=== PATIENT | female | born 1970 | race Caucasian/White ===

== ENCOUNTER 2018-12-26 14:20 | Emergency (ER) | payer OTHER ==
--- NOTE | 2018-12-26 14:34 | EDM.PDOC ---
ED HPI GENERAL MEDICAL PROBLEM - General Chief Complaint: Lower Extremity Injury/Pain Stated Complaint: INJURED FOOT Time Seen by Provider: 12/26/18 14:22 Source of Information: Reports: Patient History Limitations: Reports: No Limitations - History of Present Illness INITIAL COMMENTS - FREE TEXT/NARRATIVE: HISTORY AND PHYSICAL: History of present illness: Patient is a 48-year-old female who presents to the emergency room with complaints of pain and bruising to the anterior aspect of the left foot after a heavy roll of tin foil had fallen landing on her foot. She states this has caused pain with ambulation/weight bearing and now has bruising that is concerning to her. She states her mother had a "platelet disorder" that she previously had not been aware of but had ultimately played a role in her . She is not sure of the details surrounding this. She denies hitting her head or any loss of consciousness. Denies any other body part involvement. Denies any fever, chills, chest pain, shortness of breath or cough. Denies any GI or symptoms. She has been eating and drinking appropriately. Review of systems: As per history of present illness and below otherwise all systems reviewed and negative. Past medical history: As per history of present illness and as reviewed below otherwise noncontributory. Surgical history: As per history of present illness and as reviewed below otherwise noncontributory. Social history: See social history for further information Family history: As per history of present illness and as reviewed below otherwise noncontributory. Physical exam: General: Well-developed and well-nourished 48-year-old female. Alert and oriented. Nontoxic appearing and in no acute distress. HEENT: Atraumatic, normocephalic, pupils equal and reactive bilaterally, negative for conjunctival pallor or scleral icterus, mucous membranes moist, TMs normal bilaterally, throat clear, neck supple, nontender, trachea midline. No drooling or trismus noted. No meningeal signs. No hot potato voice noted. Lungs: Clear to auscultation, breath sounds equal bilaterally, chest nontender. Heart: S1S2, regular rate and rhythm without overt murmur Abdomen: Soft, nondistended, nontender. Negative for masses or hepatosplenomegaly. Negative for costovertebral tenderness. Pelvis: Stable nontender. Genitourinary: Deferred. Rectal: Deferred. Skin: Healing bruising noted to the left lateral anterior foot along the base of third, fourth and fifth digit. Otherwise skin is intact, warm, dry. No lesions or rashes noted. Extremities: Pain with palpation over the bruised area. She has pain with weightbearing and flexion and extension of the foot. Strong pedal and pretibial pulse. Cap refill less than 3 seconds. She is negative for cords or calf pain. Neurovascular unremarkable. Neuro: Awake, alert, oriented. Cranial nerves II through XII unremarkable. Cerebellum unremarkable. Motor and sensory unremarkable throughout. Exam nonfocal. Notes: I will do lab work as the patient does appear very concerned of having a platelet disorder that her mother has. She is agreeable to a CBC and an INR. We did discuss the need for appropriate follow-up with her primary care provider if she wants this further investigated. She is also agreeable to an x-ray at this time. Lab work is unremarkable. X-ray shows no acute fractures or dislocations. We will place and postop shoe and crutches for comfort. Supportive care measures were reviewed and discussed. Voices understanding and is agreeable to plan of care. Denies any further questions or concerns at this time. Diagnostics: CBC, INR, x-ray Therapeutics: Crutches, postop shoe Prescription: None Impression: Crush injury, left foot Plan: 1. Lab work that was done today was unremarkable. But for further diagnostic testing of this platelet disorder that your mother had, you should follow-up with your primary care provider there are multiple other tests that may need to be performed. 2. Rest, ice, elevate the affected extremity as able. Crutches and postop shoe as needed for comfort purposes. 3. Tylenol and/or ibuprofen as needed for pain management. 4. Follow-up with your primary caregiver as we discussed. Return to the ED as needed and as discussed. Definitive disposition and diagnosis as appropriate pending reevaluation and review of above. Right Feet Pain Score (Numeric/FACES): 5 - Related Data Allergies Allergy/AdvReac Type Severity Reaction Status Date / Time No Known Allergies Allergy Verified 12/26/18 14:34 Home Meds: Home Meds FLUoxetine [PROzac] 20 mg PO TID 12/26/18 [History] Temazepam [Restoril] 30 mg PO BEDTIME 12/26/18 [History] buPROPion [Wellbutrin] 75 mg PO BEDTIME 12/26/18 [History] lamoTRIgine [Lamictal XR] 300 mg PO DAILY 12/26/18 [History] Review of Systems - Review of Systems Review Of Systems: ROS reveals no pertinent complaints other than HPI. ED EXAM, GENERAL - Physical Exam Exam: See Below (See dictation) Course - Vital Signs Last Recorded V/S: Last Vital Signs Temp 96.9 F 12/26/18 14:36 Pulse 89 12/26/18 14:36 Resp 16 12/26/18 14:36 BP 128/82 12/26/18 14:36 Pulse Ox 97 12/26/18 14:36 - Orders/Labs/Meds Orders: Active Orders 24 hr Category Date Time Status DME for Discharge [COMM] Stat Oth 12/26/18 15:40 Ordered Labs: Laboratory Tests 12/26/18 12/26/18 Range/Units 14:50 14:50 WBC 5.17 (4.0-11.0) K/uL RBC 4.59 (4.30-5.90) M/uL Hgb 13.4 (12.0-16.0) g/dL Hct 38.3 (36.0-46.0) % MCV 83.4 (80.0-98.0) fL MCH 29.2 (27.0-32.0) pg MCHC 35.0 (31.0-37.0) g/dL RDW Std Deviation 37.9 (28.0-62.0) fl RDW Coeff of Betsey 13 (11.0-15.0) % Plt Count 166 (150-400) K/uL MPV 9.60 (7.40-12.00) fL Neut % (Auto) 53.7 (48.0-80.0) % Lymph % (Auto) 38.5 (16.0-40.0) % Gilmer % (Auto) 7.2 (0.0-15.0) % Eos % (Auto) 0.2 (0.0-7.0) % Baso % (Auto) 0.4 (0.0-1.5) % Neut # (Auto) 2.8 (1.4-5.7) K/uL Lymph # (Auto) 2.0 (0.6-2.4) K/uL Gilmer # (Auto) 0.4 (0.0-0.8) K/uL Eos # (Auto) 0.0 (0.0-0.7) K/uL Baso # (Auto) 0.0 (0.0-0.1) K/uL Nucleated RBC % 0.0 /100WBC Nucleated RBCs # 0 K/uL INR 0.99 Departure - Departure Time of Disposition: 15:59 Disposition: Home, Self-Care 01 Clinical Impression: Crush injury - Discharge Information Instructions: Foot Sprain Referrals: PCP,Unknown [Primary Care Provider] - Forms: ED Department Discharge Additional Instructions: The following information is given to patients seen in the emergency department who are being discharged to home. This information is to outline your options for follow-up care. We provide all patients seen in our emergency department with a follow-up referral. The need for follow-up, as well as the timing and circumstances, are variable depending upon the specifics of your emergency department visit. If you don't have a primary care physician on staff, we will provide you with a referral. We always advise you to contact your personal physician following an emergency department visit to inform them of the circumstance of the visit and for follow-up with them and/or the need for any referrals to a consulting specialist. The emergency department will also refer you to a specialist when appropriate. This referral assures that you have the opportunity for follow-up care with a specialist. All of these measure are taken in an effort to provide you with optimal care, which includes your follow-up. Under all circumstances we always encourage you to contact your private physician who remains a resource for coordinating your care. When calling for follow-up care, please make the office aware that this follow-up is from your recent emergency room visit. If for any reason you are refused follow-up, please contact the [facility] Emergency Department at and asked to speak to the emergency department charge nurse. [facility] [address] [place] [id number] [address] [id number] 1. Lab work that was done today was unremarkable. But for further diagnostic testing of this platelet disorder that your mother had, you should follow-up with your primary care provider there are multiple other tests that may need to be performed. 2. Rest, ice, elevate the affected extremity as able. Crutches and postop shoe as needed for comfort purposes. 3. Tylenol and/or ibuprofen as needed for pain management. 4. Follow-up with your primary caregiver as we discussed. Return to the ED as needed and as discussed. - My Orders Last 24 Hours: My Active Orders 12/26/18 15:40 DME for Discharge [COMM] Stat - Assessment/Plan Last 24 Hours: My Active Orders 12/26/18 15:40 DME for Discharge [COMM] Stat
--- NOTE | 2018-12-26 15:57 | CR ---
EXAMINATION: Left foot HISTORY: Pain COMPARISON: None TECHNIQUE: 2 views FINDINGS/IMPRESSION: There is no acute osseous abnormality, dislocation, or fracture. Bone mineralization and joint spaces are preserved. Tiny plantar calcaneal spur. No focal soft tissue swelling.
== END 2018-12-26 16:10 | disposition home or self-care (01) ==
LOC: MW.ED 14:20
DX: S97.82XA Crushing injury of left foot, initial encounter (principal); S90.32XA Contusion of left foot, initial encounter; Z79.899 Other long term (current) drug therapy; W20.8XXA Other cause of strike by thrown, projected or falling object, initial encounter
CPT/HCPCS: 36415; 73620-26-LT; 73620-LT; 85025; 85610; 99283; 99283-25

== ENCOUNTER 2019-02-24 11:22 | Day surgery (SDC) | payer OTHER ==
[~2019-02-24 11:22] MED LIST: Betamethasone Acetate/Betamethasone Sod Phosphate 30 MG/5 ML MDV ONE; Iopamidol 200-M 10 ML vial ITHECAL ONE; Lidocaine 2% 5 ML SDV ONE; Ropivacaine 0.5% 5 MG/ML 30 ML SDV ONE
--- NOTE | 2019-02-24 20:43 | OR ---
SURGEON: Janene Friedman D.O. DATE OF PROCEDURE: 02/24/2019 PRIMARY SURGEON: Janene Friedman D.O. OPERATING ROOM STAFF PRESENT: 1. James Edward RN. 2. Sara Aragon RN. 3. RT Helen. WOUND CLASS: I. PREOPERATIVE DIAGNOSES: 1. Lumbar L4-5 and L5-S1 degenerative disk disease. 2. Lumbar spondylosis. 3. Left lower extremity radiculopathy. PROCEDURES PERFORMED: 1. Left transforaminal epidural steroid injection at S1. 2. Fluoroscopic guidance for needle placement. 3. Local with oral Valium for sedation. PREOPERATIVE PAIN: 07/23. POSTOPERATIVE PAIN: 10/23. SCREENING QUESTIONS: The patient answered "no" to all of the following questions: 1. Are you allergic to iodine, Betadine or latex? 2. Do you have a bleeding disorder? 3. Do you have any joint replacements, heart valve replacements, or a pacemaker? 4. Are you allergic to anti-inflammatories or blood thinners? 5. Do you have any current local or systemic infections? MEDICAL NECESSITY: This is a patient with a history of chronic low back pain and lower extremity radicular pain in the above dermatomal pattern that comes in for the above diagnostic and therapeutic procedure. Pertinent positives and negatives for this suspected disease process along with the diagnostic findings and testing are in the patient's history and physical exam. The most salient feature includes radicular pain in the above dermatomal pattern. The patient had failed attempts at conservative therapy including physical therapy, nonsteroidal anti- inflammatory drugs, and other medications. No contraindications to perform this procedure including medical, no bleeding disorders or infections, no psychological, no antisocial personality disorder or active addiction disorder. There are no work-related issues, and, in general, the patient does not have any history of multiple prior interventions, surgeries or nerve blocks which have failed to return the patient to function. The patient's other symptoms to be treated include numbness, paresthesia, dysesthesia or hypoesthesia referred into the left lower extremity or any weakness in the involved myotome. This procedure is being performed in accordance with national guidelines as written by the [employer] (NATALY). DESCRIPTION OF PROCEDURE: The patient had the procedure thoroughly explained including risks, benefits and alternatives. Consent was signed in my clinic indicating understanding and willingness to proceed. The patient presented to [facility] where the patient was escorted to the dressing room to disrobe and change into a hospital gown. Preoperative vital signs were taken and stable. The patient reported that Valium was taken prior to the procedure. The patient was brought to the procedure room and placed in the prone position on the table. A pillow was placed under the abdomen in order to flatten the lumbar lordosis. The back was prepped with ChloraPrep and sterilely draped. All personnel in the operating room were dressed in appropriate attire including surgical scrubs, head and shoe covers. This was to ensure sterility while in the treatment room. During the time fluoroscopy was in use, all personnel in the operating room wore lead alvarado with thyroid collars. Sterile technique was used during the procedure. The fluoroscope was placed for the left S1 transforaminal epidural steroid injection. There was no sign of infection at the skin site for needle insertion. The skin was anesthetized with 2% lidocaine with a 27 gauge 1-1/2 inch needle. Then a 22 gauge 3-1/2 inch spinal needle, advanced to the S1. Under direct fluoroscopic guidance needle position was verified in three views; AP, oblique and lateral, with 0.2 cubic centimeters increments of Isovue-200 dye. No intravascular flow pattern was observed under live fluoroscopy. Then 12 milligrams of Celestone was slowly injected after negative aspiration of heme, cerebrospinal fluid and no paresthesias were noted. The needle was cleared prior to removal from the skin. No adverse reactions were noted. The patient was brought to the recovery room awake and in good condition by my staff. The patient was monitored and discharge instructions were given after a brief stay in the recovery area. Both oral and written discharge and follow up instructions were given. The patient will follow up in the clinic in 3-4 weeks post procedure to evaluate the efficacy. The patient verbalized understanding including understanding of those signs and symptoms that would require emergency care and knows how to contact the office if there are any problems or questions in the meantime. FOLLOWUP: In the Pain Clinic in 3 weeks. MARICRUZ / KAREN /[id number]
== END 2019-02-24 13:10 | disposition home or self-care (01) ==
LOC: MW.SDS 11:22
PROVIDERS: ATTEND Anesthesiology
DX: G89.29 Other chronic pain (principal); M54.5 Low back pain; M51.17 Intervertebral disc disorders with radiculopathy, lumbosacral region; M47.26 Other spondylosis with radiculopathy, lumbar region; M48.07 Spinal stenosis, lumbosacral region; M12.88 Other specific arthropathies, not elsewhere classified, other specified site; M41.9 Scoliosis, unspecified; M79.18 Myalgia, other site; F31.9 Bipolar disorder, unspecified; Z79.1 Long term (current) use of non-steroidal anti-inflammatories (NSAID); Z79.899 Other long term (current) drug therapy
CPT/HCPCS: 64483; J0702; J2001; J2795; Q9966

== ENCOUNTER 2019-04-28 11:00 | Day surgery (SDC) | payer OTHER ==
[2019-04-28] MEDS ORDERED: Lidocaine 2% 5 ML SDV ONE (11:18)
[2019-04-28] MEDS ORDERED: Ropivacaine 0.5% 5 MG/ML 30 ML SDV ONE (11:18)
[2019-04-28] MEDS ORDERED: Betamethasone Acetate/Betamethasone Sod Phosphate 30 MG/5 ML MDV ONE ×2 (11:19→12:16)
[2019-04-28] MEDS ORDERED: Iopamidol 200-M 10 ML vial ITHECAL ONE ×2 (11:19→12:13)
--- NOTE | 2019-04-28 17:49 | OR ---
SURGEON: Janene Friedman D.O. DATE OF PROCEDURE: 04/28/2019 PROCEDURES PERFORMED: 1. Caudal epidural steroid injection. 2. Fluoroscopic guidance for needle placement. 3. Local with oral Valium for sedation. PREOPERATIVE DIAGNOSES: 1. Chronic low back pain. 2. Lumbar degenerative disk disease. 3. Lumbar spondylosis. 4. Lumbar spinal stenosis. POSTOPERATIVE DIAGNOSES: 1. Chronic low back pain. 2. Lumbar degenerative disk disease. 3. Lumbar spondylosis. 4. Lumbar spinal stenosis. ASSISTANTS: OR staff present are RT Helen; and Luis Degroot RN. SCREENING QUESTIONS: The patient answered "no" to all of the following questions: 1. Are you allergic to latex? 2. Do you have a bleeding disorder? 3. Do you have any current local or systemic infections? 4. Are you taking any anti-inflammatories or blood thinners? 5. Do you have any joint replacements, heart valve replacements, or a pacemaker? DESCRIPTION OF PROCEDURE: The patient had the procedure thoroughly explained including all possible risks, benefits and alternatives. Consent was signed in my clinic indicating understanding and willingness to proceed. The patient presented to [facility] and was escorted to the dressing room to disrobe and change into a hospital gown. Preoperative vital signs were taken and stable. The patient reported that Valium was taken prior to the procedure. The patient was brought back to the procedure room and placed in the prone position on the procedure room table. A pillow was placed under the hips in order to flatten the lumbar lordosis. The back was prepped with ChloraPrep and sterilely draped. All personnel in the operating room were dressed in appropriate attire including surgical scrubs, head and shoe covers. This was to ensure sterility while in the treatment room. During the time fluoroscopy was in use, all personnel in the operating room wore lead alvarado with thyroid collars. Sterile technique was used throughout the procedure. The patient was awake and conversant throughout the procedure. There was no evidence of infection at the site of needle insertion. Skeletal landmarks were identified under fluoroscopy for the lumbar epidural. Skin was anesthetized with 2% lidocaine with a sterile 27-gauge 1.5 inch needle. Then a 20-gauge Tuohy epidural needle was placed in the epidural space with loss of resistance technique under fluoroscopic guidance. No heme, cerebrospinal fluid, or paresthesias were noted. Isovue-200 contrast dye was injected in 0.2 cubic centimeter increments and seen to outline the epidural space in both AP and lateral views. There was no intravascular flow pattern observed under live fluoroscopy. Then 12 milligrams of Celestone was slowly injected after negative aspiration. The patient tolerated the procedure well. Vital signs were stable during and after the procedure. The staff escorted the patient to the recovery area and the patient was released in stable condition after a brief stay in the recovery room monitored by the nurse. The patient was given both oral and written discharge and follow up instructions with recommendation to follow up given for 2-3 weeks. The patient voiced understanding including understanding of those signs and symptoms that would require emergency care. The patient knows how to contact the office if there are any additional problems or questions in the meantime. PREOPERATIVE PAIN LEVEL: 8/10. POSTOPERATIVE PAIN LEVEL: Zero. PLAN: Followup in the Pain Clinic in 3 weeks. MARICRUZ / KAREN /[id number]
== END 2019-04-28 12:58 ==
LOC: MW.SDS 11:00
PROVIDERS: ATTEND Anesthesiology
DX: G89.29 Other chronic pain (principal); M54.5 Low back pain; M51.17 Intervertebral disc disorders with radiculopathy, lumbosacral region; M47.896 Other spondylosis, lumbar region; M47.897 Other spondylosis, lumbosacral region; M48.061 Spinal stenosis, lumbar region without neurogenic claudication; M12.88 Other specific arthropathies, not elsewhere classified, other specified site; M79.18 Myalgia, other site; M41.9 Scoliosis, unspecified; Z87.891 Personal history of nicotine dependence; Z79.1 Long term (current) use of non-steroidal anti-inflammatories (NSAID); Z79.899 Other long term (current) drug therapy
CPT/HCPCS: 62323; J0702; J2795; Q9966; J2001